=== PATIENT | male | born 1990 | race Caucasian/White ===

== ENCOUNTER 2023-07-25 19:59 | Emergency (ER) | payer SELFPAY ==
[2023-07-25] MEDS ORDERED: LIDOCAINE 1% 20 ML MDV ONE (21:05)
[2023-07-25] MEDS ORDERED: IBUPROFEN 400 MG TAB ONE (21:05)
[2023-07-25] MEDS ORDERED: HYDROCODONE/APAP 7.5/325 MG TAB ONE (21:06)
[2023-07-25] MEDS ORDERED: TDAP (DIPHTH,PERTUSS(ACELL),TET VAC) 0.5 ML VIAL IMVAC ONE (21:06)
[2023-07-25] MEDS ORDERED: BUPIVACAINE 0.25% PF 10 ML VIAL ONE (21:06)
--- NOTE | 2023-07-25 21:59 | RAD REPORT ---
EXAM DESCRIPTION: RAD - Forearm Left - 07/25/2023 9:13 pm CLINICAL HISTORY: laceration COMPARISON: No comparisons TECHNIQUE: Left forearm, 2 views. FINDINGS: No fracture is identified. There is no dislocation or periosteal reaction noted. Soft tissue irregularity and some subcutaneous gas along the medial aspect of the distal forearm. No foreign body or other soft tissue abnormality. IMPRESSION: Soft tissue abnormalities as above, without acute osseous abnormality. No radiopaque for eign body.
--- NOTE | 2023-07-25 22:18 | ER ---
Nurse's Notes [facility] Name: Dexter Barbosa Age: 32 yrs Sex: Male : 1990 Arrival Date: 07/25/2023 Time: 19:59 Bed 18 Private MD: Diagnosis: Laceration without foreign body of left wrist Presentation: 07/24 20:46 Chief complaint: Patient states: cut left arm on glass. vc1 20:46 Coronavirus screen: Client denies travel out of the [place] in the last 14 days. At this vc1 time, the client does not indicate any symptoms associated with coronavirus-19. Ebola Screen: Patient negative for fever greater than or equal to 101.5 degrees Fahrenheit, and additional compatible Ebola Virus Disease symptoms Patient denies exposure to infectious person. Patient denies travel to an Ebola-affected area in the 21 days before illness onset. No symptoms or risks identified at this time. Initial Sepsis Screen: Does the patient meet any 2 criteria? No. Patient's initial sepsis screen is negative. Does the patient have a suspected source of infection? No. Patient's initial sepsis screen is negative. Risk Assessment: Do you want to hurt yourself or someone else? Patient reports no desire to harm self or others. Onset of symptoms was July 25, 2023 at 19:30. 20:46 Method Of Arrival: Ambulatory vc1 20:46 Acuity: TORREY 2 vc1 Triage Assessment: 21:09 General: Appears in no apparent distress. uncomfortable, Behavior is calm, cooperative, vc1 appropriate for age. Pain: Complains of pain in palmar aspect of left forearm Pain does not radiate. Aggravated by increased activity, repositioning. Neuro: Level of Consciousness is awake, alert, obeys commands, Oriented to person, place, time, situation, Appropriate for age. Cardiovascular: Patient's skin is warm and dry. Respiratory: Airway is patent Respiratory effort is even, unlabored, Respiratory pattern is regular, symmetrical. Derm: Skin left arm laceration. Injury Description: Laceration sustained to left arm is 2.6 to 7.5 cm long, not bleeding, was sustained 1-2 hours ago. Historical: - Allergies: 21:07 No Known Allergies; vc1 - Home Meds: 21:07 None [Active]; vc1 - PMHx: 21:07 None; vc1 - PSHx: 21:07 None; vc1 - Immunization history:: Client reports having NOT received the Covid vaccine. Last tetanus immunization: 6 years ago. Flu vaccine is not up to date. - Infectious Disease History:: Denies. - Social history:: Smoking status: Reported history of juuling and/or vaping. Patient uses recovering addict. Screenin:46 Abuse screen: Denies threats or abuse. Nutritional screening: No deficits noted. vc1 Tuberculosis screening: No symptoms or risk factors identified. 22:50 [facility] ED Fall Risk Assessment (Adult) History of falling in the last 3 months, pf1 including since admission No falls in past 3 months (0 pts) Confusion or Disorientation No (0 pts) Intoxicated or Sedated No (0 pts) Impaired Gait No (0 pts) Mobility Assist Device Used No (0 pt) Altered Elimination No (0 pt) Score/Fall Risk Level 0 - 2 = Low Risk Oriented to surroundings, Maintained a safe environment, Educated pt \T\ family on fall prevention, incl call for assistance when getting out of bed, Assessed \T\ reinforced patient's understanding of fall precautions, Provided non-skid footwear, Hourly rounding (assess needs \T\ fall precautionary measures) done, Used ambulatory aids as needed (educated on \T\ assisted with), Used gait belt as appropriate. Assessment: 20:46 General: Appears in no apparent distress. uncomfortable, well groomed, well developed, pf1 Behavior is calm, cooperative, appropriate for age, quiet. 20:46 Pain: Complains of pain in left arm Pain currently is 8 out of 10 on a pain scale. pf1 Neuro: No deficits noted. Level of Consciousness is awake, alert, obeys commands, Oriented to person, place, time, situation. Cardiovascular: No deficits noted. Capillary refill < 3 seconds Patient's skin is warm and dry. Respiratory: No deficits noted. Airway is patent Respiratory effort is even, unlabored, Respiratory pattern is regular, symmetrical, Breath sounds are clear bilaterally. GI: No deficits noted. No signs and/or symptoms were reported involving the gastrointestinal system. : No deficits noted. No signs and/or symptoms were reported regarding the genitourinary system. EENT: No deficits noted. No signs and/or symptoms were reported regarding the EENT system. Derm: Wound noted left arm Wound is approximate 7-8 cm laceration to left lopez. Musculoskeletal: No deficits noted. No signs and/or symptoms reported regarding the musculoskeletal system. Injury Description: Laceration sustained to left arm is 7.6 to 20 cm long. 21:30 Reassessment: Patient appears in no apparent distress at this time. Patient and/or pf1 family updated on plan of care and expected duration. Pain level reassessed. Patient is alert, oriented x 3, equal unlabored respirations, skin warm/dry/pink. 22:30 Reassessment: Patient appears in no apparent distress at this time. Patient and/or pf1 family updated on plan of care and expected duration. Pain level reassessed. Patient is alert, oriented x 3, equal unlabored respirations, skin warm/dry/pink. Patient states symptoms have improved. Vital Signs: 21:00 BP 125 / 83; Pulse 93; Resp 18; Temp 98.1; Pulse Ox 97% on R/A; pf1 22:00 BP 118 / 82; Pulse 79; Resp 18; Temp 98; Pulse Ox 100% on R/A; Pain 4/10; pf1 22:00 Pain Scale: Adult pf1 ED Course: 20:32 Patient arrived in ED. lg3 20:42 Ben Mena PA is PHCP. cp 20:42 Elmer Rivera MD is Attending Physician. cp 20:46 Arm band placed on right wrist. vc1 21:07 Triage completed. vc1 21:11 Patient has correct armband on for positive identification. Bed in low position. Pulse vc1 ox on. NIBP on. 21:15 XRAY Forearm LEFT In Process Unspecified. EDMS 21:28 No provider procedures requiring assistance completed. Patient did not have IV access pf1 during this emergency room visit. 22:20 Irrigation of laceration on left arm irrigated with normal saline Patient tolerated pf1 well. 22:40 Velcro wrist splint applied to left wrist. pf1 22:48 Dressings: Adaptic X 1; left arm. José wrap to left arm. pf1 22:49 Provided Education on: prescription and wound care. pf1 Administered Medications: 21:15 Drug: Ibuprofen PO 800 mg PO once Route: PO; pf1 22:00 Follow up: Response: No adverse reaction; Marked relief of symptoms; Pain is decreased pf1 21:15 Drug: Hydrocodone-Acetaminophen PO (7.5 mg-325 mg) 1 tabs PO once; RASS on ADMIN: pf1 Combtv4, Very Agttd3, Agttd2, Rstlss1, AlertClm0, Drwsy-1, Lt Sdtn-2, Mod Sdtn-3, Dp Sdtn-4, UnArsble-5 Route: PO; 22:00 Follow up: Response: No adverse reaction; Marked relief of symptoms; Pain is decreased pf1 21:15 Drug: Boostrix Tdap IM 0.5 ml IM once; as a single dose Route: IM; Site: right deltoid; pf1 22:00 Follow up: Response: No adverse reaction pf1 21:23 CANCELLED (not in pyxiss): tetanus toxoid,adsorbed0.5 ml IM once; Provide Vaccine pf1 Information Statement (VIS). 22:20 Drug: Lidocaine Infiltration (1 %) 20 ml 20 ml Infiltration once; to bedside {Note: pf1 administered per PA. alfred} Volume: 20 ml; Route: Infiltration; 22:48 Follow up: Response: No adverse reaction; Marked relief of symptoms pf1 22:20 Drug: Bupivacaine Infiltration (0.5 %) 10 ml 10 ml Infiltration once {Note: pf1 administered per PA. alfred} Volume: 10 ml; Route: Infiltration; 22:48 Follow up: Response: No adverse reaction; Marked relief of symptoms; Pain is decreased pf1 Medication: 22:50 VIS not applicable for this client. pf1 Outcome: 22:17 Discharge ordered by . kaila 22:49 Discharged to home ambulatory, with family, pf1 22:49 Condition: improved 22:49 Discharge instructions given to patient, Instructed on discharge instructions, follow up and referral plans. Demonstrated understanding of instructions, follow-up care, medications, wound care, Prescriptions given X 1, 22:50 Patient left the ED. pf1 Signatures: Dispatcher [employer] EDMS Ben Mena PA PA cp Able, Lacie RN RN lg3 Tori Smart RN RN vc1 Laurie Wells RN RN pf1
--- NOTE | 2023-07-25 22:18 | EDPHYS ---
Physician Documentation [facility] Name: Dexter Barbosa Age: 32 yrs Sex: Male : 1990 Arrival Date: 07/25/2023 Time: 19:59 Bed 18 Private MD: ED Physician Elmer Rivera HPI: 07/24 21:00 This 32 yrs old Male presents to ER via Ambulatory with complaints of Laceration to cp Left Wrist. 21:00 The patient or guardian complains of a laceration, clean. The complaints affect the cp left wrist and palmar aspect of left forearm. Context: The problem was sustained at home, resulted from accidentally from piece of broken glass. Onset: The symptoms/episode began/occurred just prior to arrival. Treatment prior to arrival includes: pressure dressing and bandage. Associated signs and symptoms: The patient has no apparent associated signs or symptoms. Historical: - Allergies: 21:07 No Known Allergies; vc1 - Home Meds: 21:07 None [Active]; vc1 - PMHx: 21:07 None; vc1 - PSHx: 21:07 None; vc1 - Immunization history:: Client reports having NOT received the Covid vaccine. Last tetanus immunization: 6 years ago. Flu vaccine is not up to date. - Infectious Disease History:: Denies. - Social history:: Smoking status: Reported history of juuling and/or vaping. Patient uses recovering addict. ROS: 21:05 Constitutional: Negative for fever, cp 21:05 MS/extremity: Positive for laceration, of the left wrist and left forearm, Negative for decreased range of motion, paresthesias, 21:05 All other systems are negative, Exam: 21:10 Constitutional: The patient appears in no acute distress, alert, awake, non-toxic, well cp developed, well nourished, uncomfortable, 21:10 Head/Face: Normocephalic, atraumatic. cp 21:10 Chest/axilla: Inspection: normal, 21:10 Cardiovascular: Rate: normal, Rhythm: regular, Pulses: Pulses are 2+ in left radial artery. 21:10 Respiratory: the patient does not display signs of respiratory distress, Respirations: normal, no use of accessory muscles, no retractions, labored breathing, is not present, Breath sounds: are clear throughout, no decreased breath sounds, no stridor, no wheezing, 21:10 Abdomen/GI: Exam negative for discomfort, distension, guarding, Inspection: abdomen appears normal, 21:10 Musculoskeletal/extremity: Extremities: noted in the left hand: neurovascular intact, no restriction on AROM, no signs of tendon injury, 21:10 Skin: injury, laceration(s), of the left wrist and left forearm ulna side, that can be described as no foreign body, linear, with mild bleeding, Vital Signs: 21:00 BP 125 / 83; Pulse 93; Resp 18; Temp 98.1; Pulse Ox 97% on R/A; pf1 22:00 BP 118 / 82; Pulse 79; Resp 18; Temp 98; Pulse Ox 100% on R/A; Pain 4/10; pf1 22:00 Pain Scale: Adult pf1 Laceration: 22:20 Wound Repair of 11cm ( 4.3in ) subcutaneous laceration to ulna side of left wrist and cp left forearm. Linear shaped.. Distal neuro/vascular/tendon intact. Anesthesia: Wound infiltrated with 10 mls of Lido/Marcaine. Wound prep: Moderate cleansing by me, Wound irrigation by me. Skin closed with 13 1-0 Sterling using staple gun. Dressed with Bacitracin, 4x4's, jurgen wrap. Patient tolerated well. MDM: 20:46 Patient medically screened. cp 21:00 Differential diagnosis: open fracture, tendon rupture, simple laceration, major artery cp laceration. 22:16 Data reviewed: vital signs, nurses notes, radiologic studies, plain films, and as a cp result, I will discharge patient. 22:17 Counseling: I had a detailed discussion with the patient and/or guardian regarding the cp historical points, exam findings, and any diagnostic results supporting the discharge/admit diagnosis, radiology results, the need for outpatient follow up, a family practitioner, to return to the emergency department if symptoms worsen or persist or if there are any questions or concerns that arise at home. 22:17 Response to treatment: the patient's symptoms have markedly improved after treatment, cp and as a result, I will discharge patient. 07/24 20:53 Order name: XRAY Forearm LEFT; Complete Time: 22:15 cp 07/24 20:52 Order name: Wound Care; Complete Time: 22:48 cp 07/24 20:52 Order name: Dressing - Wound; Complete Time: 22:46 cp 07/24 20:52 Order name: Gloves, Sterile; Complete Time: 21:23 cp 07/24 20:52 Order name: Setup Suture Tray; Complete Time: 21:23 cp 07/24 22:16 Order name: Wound dressing; Complete Time: 22:46 cp 07/24 22:16 Order name: Splint - Wrist; Complete Time: 22:46 cp Administered Medications: 21:15 Drug: Ibuprofen PO 800 mg PO once Route: PO; pf1 22:00 Follow up: Response: No adverse reaction; Marked relief of symptoms; Pain is decreased pf1 21:15 Drug: Hydrocodone-Acetaminophen PO (7.5 mg-325 mg) 1 tabs PO once; RASS on ADMIN: pf1 Combtv4, Very Agttd3, Agttd2, Rstlss1, AlertClm0, Drwsy-1, Lt Sdtn-2, Mod Sdtn-3, Dp Sdtn-4, UnArsble-5 Route: PO; 22:00 Follow up: Response: No adverse reaction; Marked relief of symptoms; Pain is decreased pf1 21:15 Drug: Boostrix Tdap IM 0.5 ml IM once; as a single dose Route: IM; Site: right deltoid; pf1 22:00 Follow up: Response: No adverse reaction pf1 21:23 CANCELLED (not in pyxiss): tetanus toxoid,adsorbed0.5 ml IM once; Provide Vaccine pf1 Information Statement (VIS). 22:20 Drug: Lidocaine Infiltration (1 %) 20 ml 20 ml Infiltration once; to bedside {Note: pf1 administered per page,PA.} Volume: 20 ml; Route: Infiltration; 22:48 Follow up: Response: No adverse reaction; Marked relief of symptoms pf1 22:20 Drug: Bupivacaine Infiltration (0.5 %) 10 ml 10 ml Infiltration once {Note: pf1 administered per page,PA.} Volume: 10 ml; Route: Infiltration; 22:48 Follow up: Response: No adverse reaction; Marked relief of symptoms; Pain is decreased pf1 Disposition Summary: 07/25/23 22:17 Discharge Ordered Notes: Location: Home cp Problem: new cp Symptoms: have improved cp Condition: Stable cp Diagnosis - Laceration without foreign body of left wrist cp Followup: cp - With: Private Physician - When: 10 - 14 days - Reason: Staple/Suture removal Discharge Instructions: - Discharge Summary Sheet cp - Laceration Care, Adult cp Forms: - Medication Reconciliation Form cp - Antibiotic Education cp - Prescription Opioid Use cp - Patient Portal Instructions cp - Leadership Thank You Letter cp Prescriptions: - Cephalexin 500 mg Oral Capsule - take 1 capsule ORAL route every 8 hours for 10 days; 30 capsule; Refills: 0, cp Product Selection Permitted Addendum: 07/27/2023 06:36 Co-signature as Attending Physician, Elmer Rivera MD I agree with the assessment s p4 and plan of care. I reviewed the patient's care provided by the Advanced Practice Provider and agree with the diagnosis and treatment plan. Signatures: Dispatcher [employer] EDMS Ben Mena PA PA cp Calcote, Vanessa RN RN vc1 Laurie Wells RN RN pf1 Emler Rivera MD MD sp4 Corrections: (The following items were deleted from the chart) 07/24 21:23 20:52 Tetanus Toxoid,Adsorbed IM 0.5 ml IM once; Provide Vaccine Information Statement pf1 (VIS). ordered. cp 21:23 21:22 Tetanus Toxoid,Adsorbed IM 0.5 ml IM once; Provide Vaccine Information Statement pf1 (VIS). ordered. pf1 07/25 22:42 22:41 This 32 yrs old Male presents to ER via Ambulatory with complaints of Laceration cp to Left Wrist. cp 22:48 22:46 Wound Repair of 11cm ( 4.3in ) subcutaneous laceration to ulna side of left wrist cp and left forearm. Linear shaped.. Distal neuro/vascular/tendon intact. Anesthesia: Wound infiltrated with 10 mls of Lido/Marcaine. Wound prep: Moderate cleansing by me, Wound irrigation by me. Skin closed with 13 1-0 Sterling using staple gun. Dressed with Bacitracin, 4x4's, jurgen wrap. Patient tolerated well. cp
[2023-07-25 23:08] VITALS: BP 118/82; TEMP 98; O2SAT 100
== END 2023-07-25 22:50 | disposition home or self-care (01) ==
LOC: ER 19:59
PROC: 0HQEXZZ Repair Left Lower Arm Skin, External Approach (ICD-10-PCS; principal; 2023-07-25)
DX: S61.512A Laceration without foreign body of left wrist, initial encounter (principal)
CPT/HCPCS: 96372; 99284; J2001